=== PATIENT | female | born 1980 | race Caucasian/White ===

== ENCOUNTER 2016-05-12 12:31 | Emergency (ER) | payer OTHER, SELFPAY ==
[2016-05-12 12:55] VITALS: BP 127/83; PULSE 100; RESP 20; TEMP 98.9
--- NOTE | 2016-05-12 13:33 | ED ---
Female Urogenital HPI - General Chief complaint: Urogenital Stated complaint: NAUSEA, POSS UTI? Source: patient Mode of arrival: ambulatory Limitations: no limitations - History of Present Illness Initial comments: Patient is a 36-year-old female present for evaluation for vaginal discharge and nausea with fatigue. Past medical history as below. Patient has had the symptoms over the past week. States that she has a foul odor emanating from her vagina. She has a bloody/white Discharge. She said that she is sexually active and does not wear protection. Her last menstrual period was last month. She doesn't mid to some pelvic cramping. She has a history of Trichomonas which was treated last year. She also has a history of gonorrhea and chlamydia. States that she has subjective fevers and chills. Has diarrhea. Nausea. No vomiting. Denies shortness of breath, chest pain, cough, abdominal pain, pain/burning with urination. Last Menstrual Period: 05/12/16 - Related Data Home Medications Medication Instructions Recorded Confirmed Sertraline [Zoloft] 200 mg PO DAILY 02/21/14 05/12/16 Gabapentin 600 mg PO TID 05/12/16 05/12/16 Ibuprofen [Motrin] 400 mg PO Q6H PRN 05/12/16 05/12/16 Allergies Allergy/AdvReac Type Severity Reaction Status Date / Time No Known Allergies Allergy Verified 05/12/16 13:09 Review of Systems ROS Statement: Those systems with pertinent positive or pertinent negative responses have been documented in the HPI. ROS Other: All systems not noted in ROS Statement are negative. Past Medical History Additional Past Medical History / Comment(s): ENDOMETRIOSIS History of Any Multi-Drug Resistant Organisms: None Reported Past Surgical History: Adenoidectomy, Section, Tonsillectomy Additional Past Surgical History / Comment(s): BILATERAL BUNIONECTOMY joint fusion on r foot/toe Past Psychological History: Bipolar Smoking Status: Current every day smoker Past Alcohol Use History: None Reported Past Drug Use History: None Reported General Exam Limitations: no limitations General appearance: alert, in no apparent distress, other (Nontoxic appearing) Head exam: Present: atraumatic, normocephalic, normal inspection Eye exam: Present: normal appearance, PERRL, EOMI. Absent: scleral icterus, conjunctival injection, periorbital swelling ENT exam: Present: normal exam, mucous membranes moist Neck exam: Present: normal inspection. Absent: tenderness, meningismus, lymphadenopathy Respiratory exam: Present: normal lung sounds bilaterally. Absent: respiratory distress, wheezes, rales, rhonchi, stridor Cardiovascular Exam: Present: regular rate, normal rhythm, normal heart sounds. Absent: systolic murmur, diastolic murmur, rubs, gallop, clicks GI/Abdominal exam: Present: soft, normal bowel sounds, other (Suprapubic tenderness. Mild in nature. Past medical and nontender. No peritoneal signs.) . Absent: distended, tenderness, guarding, rebound, rigid External exam: Present: normal external exam Speculum exam: Present: foreign body, other (There is a retained tampon in the vaginal vault. Removed. No obvious vaginal discharge. Some mild erythema to the cervix. Questional cervical motion tenderness. No other lesions noted.). Absent: vaginal discharge Extremities exam: Present: normal inspection, full ROM, normal capillary refill. Absent: tenderness, pedal edema, joint swelling, calf tenderness Back exam: Present: normal inspection Neurological exam: Present: alert, oriented X3, CN II-XII intact Psychiatric exam: Present: normal affect, normal mood Skin exam: Present: warm, dry, intact, normal color. Absent: rash Course Vital Signs 05/12/16 12:53 Temperature 98.9 F Pulse Rate 100 Respiratory 20 Rate Blood Pressure 127/83 O2 Sat by Pulse 97 Oximetry Medical Decision Making - Medical Decision Making Patient is a 36-year-old female present for evaluation for 1 week history of vaginal discharge and suprapubic pain. Physical exam revealed a retained tampon. Removed. There is some erythema and cervical motion tenderness. Will order basic labs with STI labs, test, ultrasound. 1500: Observe findings as below. Unremarkable. Not . Urinalysis negative. Trichomonas negative. Reviewed ultrasound findings. There is a small ovarian cyst on the left. No other concerning signs for a sending infection. Discussed with the patient. Discussed results that she has an ovarian cyst which is most likely causing her pelvic pain at this time. Since she has no clear signs of vaginal discharge nor does she have signs of STI, will elect to hold antibiotics for now. Feels comfortable going home. Discussed Motrin for ovarian cyst. We'll also provide follow-up with the OB/ CORPORATE ANALYST. Also encouraged her to follow up with her primary care physician. Discussed signs and symptoms on when to return to the emergency department for further evaluation. She is comfortable with discharge home and will follow-up. - Lab Data Result diagrams: 05/12/16 13:35 05/12/16 13:35 Lab Results 05/12/16 05/12/16 05/12/16 Range/Units 13:35 13:35 13:35 WBC 7.1 (3.8-10.6) k/uL RBC 4.99 (3.80-5.40) m/uL Hgb 13.6 (11.4-16.0) gm/dL Hct 42.4 (34.0-46.0) % MCV 85.1 (80.0-100.0) fL MCH 27.3 (25.0-35.0) pg MCHC 32.0 (31.0-37.0) g/dL RDW 13.0 (11.5-15.5) % Plt Count 382 (150-450) k/uL Neutrophils % HEAD OF DATA Neutrophils % (Manual) 49.0 % Lymphocytes % HEAD OF DATA Lymphocytes % (Manual) 38.5 % Monocytes % HEAD OF DATA Monocytes % (Manual) 6.5 % Eosinophils % HEAD OF DATA Eosinophils % (Manual) 5.0 % Basophils % HEAD OF DATA Metamyelocytes % 1.0 % Neutrophils # HEAD OF DATA Neutrophils # (Manual) 3.5 (1.3-7.7) k/uL Lymphocytes # HEAD OF DATA Lymphocytes # (Manual) 2.7 (1.0-4.8) k/uL Monocytes # HEAD OF DATA Monocytes # (Manual) 0.5 (0-1.0) k/uL Eosinophils # HEAD OF DATA Eosinophils # (Manual) 0.4 (0-0.7) k/uL Basophils # HEAD OF DATA Nucleated RBCs 0 (0-0) /100 WBC Polychromasia Present Sodium 142 (137-145) mmol/L Potassium 4.1 (3.5-5.1) mmol/L Chloride 106 (98-107) mmol/L Carbon Dioxide 25 (22-30) mmol/L Anion Gap 11 mmol/L BUN 18 H (7-17) mg/dL Creatinine 0.60 (0.52-1.04) mg/dL Est GFR (MDRD) Af Amer >60 (>60 ml/min/1.73 sqM) Est GFR (MDRD) Non-Af >60 (>60 ml/min/1.73 sqM) Glucose 101 H (74-99) mg/dL Calcium 9.5 (8.4-10.2) mg/dL Total Bilirubin 0.4 (0.2-1.3) mg/dL AST 15 (14-36) U/L ALT 63 H (9-52) U/L Alkaline Phosphatase 63 (38-126) U/L Total Protein 8.0 (6.3-8.2) g/dL Albumin 4.1 (3.5-5.0) g/dL HCG, Quant <2.4 mIU/mL Urine Color Urine Appearance (Clear) Urine pH (5.0-8.0) Ur Specific [place] (1.001-1.035) Urine Protein (Negative) Urine Glucose (UA) (Negative) Urine Ketones (Negative) Urine Blood (Negative) Urine Nitrite (Negative) Urine Bilirubin (Negative) Urine Urobilinogen (<2.0) mg/dL Ur Leukocyte Esterase (Negative) Urine RBC (0-5) /hpf Urine WBC (0-5) /hpf Ur Squamous Epith Cells (0-4) /hpf Urine Bacteria (None) /hpf Urine Mucus (None) /hpf Trichomonas Ag (Rapid) Negative (Negative) 05/12/16 Range/Units 14:08 WBC (3.8-10.6) k/uL RBC (3.80-5.40) m/uL Hgb (11.4-16.0) gm/dL Hct (34.0-46.0) % MCV (80.0-100.0) fL MCH (25.0-35.0) pg MCHC (31.0-37.0) g/dL RDW (11.5-15.5) % Plt Count (150-450) k/uL Neutrophils % Neutrophils % (Manual) % Lymphocytes % Lymphocytes % (Manual) % Monocytes % Monocytes % (Manual) % Eosinophils % Eosinophils % (Manual) % Basophils % Metamyelocytes % % Neutrophils # Neutrophils # (Manual) (1.3-7.7) k/uL Lymphocytes # Lymphocytes # (Manual) (1.0-4.8) k/uL Monocytes # Monocytes # (Manual) (0-1.0) k/uL Eosinophils # Eosinophils # (Manual) (0-0.7) k/uL Basophils # Nucleated RBCs (0-0) /100 WBC Polychromasia Sodium (137-145) mmol/L Potassium (3.5-5.1) mmol/L Chloride (98-107) mmol/L Carbon Dioxide (22-30) mmol/L Anion Gap mmol/L BUN (7-17) mg/dL Creatinine (0.52-1.04) mg/dL Est GFR (MDRD) Af Amer (>60 ml/min/1.73 sqM) Est GFR (MDRD) Non-Af (>60 ml/min/1.73 sqM) Glucose (74-99) mg/dL Calcium (8.4-10.2) mg/dL Total Bilirubin (0.2-1.3) mg/dL AST (14-36) U/L ALT (9-52) U/L Alkaline Phosphatase (38-126) U/L Total Protein (6.3-8.2) g/dL Albumin (3.5-5.0) g/dL HCG, Quant mIU/mL Urine Color Yellow Urine Appearance Clear (Clear) Urine pH 6.0 (5.0-8.0) Ur Specific [place] 1.022 (1.001-1.035) Urine Protein Trace H (Negative) Urine Glucose (UA) Negative (Negative) Urine Ketones Negative (Negative) Urine Blood Small H (Negative) Urine Nitrite Negative (Negative) Urine Bilirubin Negative (Negative) Urine Urobilinogen <2.0 (<2.0) mg/dL Ur Leukocyte Esterase Negative (Negative) Urine RBC 1 (0-5) /hpf Urine WBC <1 (0-5) /hpf Ur Squamous Epith Cells 3 (0-4) /hpf Urine Bacteria Rare H (None) /hpf Urine Mucus Few H (None) /hpf Trichomonas Ag (Rapid) (Negative) Disposition Clinical Impression: Retained foreign body, Ovarian cyst Disposition: HOME SELF-CARE Condition: Good Instructions: Vaginal Discharge (ED), Ovarian Cyst (ED) Referrals: Samuel Hirsch MD [Primary Care Provider] - 1-2 days Magi Swanson MD [STAFF PHYSICIAN] - 1-2 days
[2016-05-12 13:58] LABS: Aty Lym Flag Slight; CH 27.5; CHCM 32.4; HCT 42.4 % (34.0-46.0); HDW 2.97; HGB 13.6 gm/dL (11.4-16.0); MCH 27.3 pg (25.0-35.0); MCV 85.1 fL (80.0-100.0); Mean Platelet Volume 6.3; RBC 4.99 m/uL (3.80-5.40); WBC 7.1 k/uL (3.8-10.6); WBC (Perox) 7.17
[2016-05-12 14:03] LABS: ALT 63 U/L (9-52); AST 15 U/L (14-36); Alkaline Phosphatase 63 U/L (38-126); Anion Gap 11 mmol/L; Blood Urea Nitrogen 18 mg/dL (7-17); Calcium 9.5 mg/dL (8.4-10.2); Carbon Dioxide 25 mmol/L (22-30); Chloride 106 mmol/L (98-107); Glucose 101 mg/dL (74-99); Non-African American GFR(MDRD) >60 (>60 ml/min/1.73 sqM); Potassium 4.1 mmol/L (3.5-5.1); Sodium 142 mmol/L (137-145); Total Bilirubin 0.4 mg/dL (0.2-1.3)
[2016-05-12 14:08] LABS: Add Differential Manual Differential
[2016-05-12 14:12] LABS: Nucleated Red Blood Cells 0 /100 WBC (0-0); Polychromasia Present; Total Cells Counted 200
[2016-05-12 14:19] LABS: HCG,Quantitative Serum <2.4 mIU/mL
[2016-05-12 14:22] LABS: Appearance,Urine Clear (Clear); Bacteria,Urine Rare /hpf; Bilirubin,Urine Negative (Negative); Glucose,Urine (UA) Negative (Negative); Ketones,Urine Negative (Negative); Leukocyte Esterase,Urine Negative (Negative); Mucus,Urine Few /hpf; Nitrite,Urine Negative (Negative); Particle Count 6011; Protein,Urine Trace (Negative); RBC,Urine 1 /hpf (0-5); Specific Gravity,Urine 1.022 (1.001-1.035); Squamous Epithelial Cell,Urine 3 /hpf (0-4); UA Billing (MACRO vs. MICRO) MICRO; Urobilinogen,Urine <2.0 mg/dL (<2.0); WBC,Urine <1 /hpf (0-5)
--- NOTE | 2016-05-12 14:55 | US ---
EXAMINATION TYPE: US transvaginal DATE OF EXAM: 05/12/2016 2:35 PM COMPARISON: Prior pelvic ultrasound November 01, 2013 CLINICAL HISTORY: Pain. irregular cycles, patient states that the ER Dr removed an impacted tampon. TECHNIQUE: Transvaginal (TV) Date of LMP: end of last month per patient EXAM MEASUREMENTS: Uterus: 8.7 x 4.5 x 5.9 cm Endometrial Stripe: 0.6 cm with fluid within cm Right Ovary: 2.3 x 1.7 x 2.5 cm Left Ovary: 2.8 x 2.1 x 3.3 cm TECHNOLOGIST IMPRESSION: prior exams on PACS 1. Uterus: Anteverted wnl 2. Endometrium: fluid seen within 3. Right Ovary: wnl 4. Left Ovary: wnl Spectral, color and waveform doppler imaging shows good arterial and venous flow within the ovaries ; 5. Bilateral Adnexa: adjacent to left ovary there is a thick walled fluid collection measuring 2.3 x 1.5 x 1.9 cm 6. Posterior cul-de-sac: no free fluid Some free fluid is seen in the endometrial canal. Endometrium is not suspiciously thickened. No free fluid is seen in pelvic cul-de-sac. Both ovaries are identified. Within left ovary there is an irregular 2.3 x 1.5 x 1.9 cm cyst with int ernal echoes could reflect involuting hemorrhagic or proteinaceous cyst. IMPRESSION: There is 2.3 cm nonsimple cyst in the left ovary suspect involuting hemorrhagic or protei naceous cyst. Small amount of free fluid is seen in the endometrial canal of uterine fundus, nonspec ific finding.
== END 2016-05-12 15:22 | disposition home or self-care (01) ==
LOC: EC 12:31
DX: T19.2XXA Foreign body in vulva and vagina, initial encounter (principal); N83.202 Unspecified ovarian cyst, left side; F31.9 Bipolar disorder, unspecified; F17.200 Nicotine dependence, unspecified, uncomplicated; Z79.899 Other long term (current) drug therapy
CPT/HCPCS: 36415; 76830; 80053; 81001; 84702; 85025; 87491; 87591; 87808; 93975; 99284

== ENCOUNTER 2016-06-14 08:15 | Emergency (ER) | payer OTHER, SELFPAY ==
[2016-06-14] MEDS ORDERED: DIPH,PERTUS(ACELL)TETVAC-LF 0.5 ML VIAL IM ONE (08:27)
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
[2016-06-14 10:48] VITALS: BP 107/70; PULSE 84; RESP 16; TEMP 98.2
== END 2016-06-14 11:09 | disposition home or self-care (01) ==
LOC: EC 08:15
DX: F32.9 Major depressive disorder, single episode, unspecified (principal); S00.81XA Abrasion of other part of head, initial encounter; T22.012A Burn of unspecified degree of left forearm, initial encounter; F41.9 Anxiety disorder, unspecified; F17.200 Nicotine dependence, unspecified, uncomplicated; Z79.899 Other long term (current) drug therapy; Z23 Encounter for immunization; W51.XXXA Accidental striking against or bumped into by another person, initial encounter
CPT/HCPCS: 70450; 82075; 90471; 90715; 99285

== ENCOUNTER 2017-02-24 21:16 | Emergency (ER) | payer OTHER ==
[2017-02-24] MEDS ORDERED: KETOROLAC 30 MG/ML 1 ML VIAL IVP STA (22:01)
[2017-02-24] MEDS ORDERED: SODIUM CHLORIDE 0.9% 1,000 ML IV STA (22:01)
[2017-02-24] MEDS ORDERED: ONDANSETRON 4 MG/2 ML VIAL IVP STA (22:01)
[2017-02-24] MEDS ORDERED: ACETAMINOPHEN TAB 325 MG TAB PO STA (22:01)
[2017-02-24 22:32] LABS: Basophils # (A) 0.1 k/uL (0-0.2); Basophils % (A) 1 %; Eosinophils # (A) 0.2 k/uL (0-0.7); Eosinophils % (A) 2 %; HCT 37.4 % (34.0-46.0); HGB 12.1 gm/dL (11.4-16.0); Lymphocytes # (A) 1.6 k/uL (1.0-4.8); Lymphocytes % (A) 15 %; MCH 27.3 pg (25.0-35.0); MCHC 32.2 g/dL (31.0-37.0); MCV 84.6 fL (80.0-100.0); Mean Platelet Volume 6.8; Monocytes # (A) 0.5 k/uL (0-1.0); Monocytes % (A) 5 %; Neutrophils # (A) 8.1 k/uL (1.3-7.7); Neutrophils % (A) 75 %; Platelet Count 270 k/uL (150-450); RBC 4.42 m/uL (3.80-5.40); RDW 13.4 % (11.5-15.5); WBC 10.8 k/uL (3.8-10.6)
[2017-02-24 22:41] LABS: ALT 25 U/L (9-52); AST 11 U/L (14-36); Albumin 3.5 g/dL (3.5-5.0); Alkaline Phosphatase 46 U/L (38-126); Amylase <30 U/L (30-110); Anion Gap 10 mmol/L; Blood Urea Nitrogen 11 mg/dL (7-17); Calcium 8.4 mg/dL (8.4-10.2); Carbon Dioxide 29 mmol/L (22-30); Chloride 103 mmol/L (98-107); Glucose 95 mg/dL (74-99); Lipase 37 U/L (23-300); Potassium 3.3 mmol/L (3.5-5.1); Sodium 142 mmol/L (137-145); Total Bilirubin 0.2 mg/dL (0.2-1.3); Total Protein 6.9 g/dL (6.3-8.2)
[2017-02-24 22:44] LABS: Amorphous Sediment,Urine Rare /hpf; Appearance,Urine Cloudy (Clear); Bacteria,Urine Rare /hpf; Bilirubin,Urine Negative (Negative); Blood,Urine Small (Negative); Color,Urine Yellow; Glucose,Urine (UA) Negative (Negative); Ketones,Urine Negative (Negative); Leukocyte Esterase,Urine Moderate (Negative); Mucus,Urine Many /hpf; Nitrite,Urine Negative (Negative); Protein,Urine 1+ (Negative); RBC,Urine 1 /hpf (0-5); Specific Gravity,Urine 1.026 (1.001-1.035); Squamous Epithelial Cell,Urine 6 /hpf (0-4); WBC,Urine 11 /hpf (0-5)
--- NOTE | 2017-02-24 22:57 | XR ---
EXAMINATION TYPE: XR chest 2V DATE OF EXAM: 02/24/2017 COMPARISON: 02/05/2015 HISTORY: Chest pain TECHNIQUE: Frontal and lateral views of the chest are obtained. FINDINGS: Heart and mediastinum are normal. There is patchy infiltrate in both lower lobes. There is patchy atelectasis at the right lung base and in the right middle lobe. There is no heart failure. M ediastinum is normal. IMPRESSION: There are new bilateral lower lobe pulmonary infiltrates and atelectasis compared to old exam. Normal heart. There is posterior left lower lobe consolidation.
--- NOTE | 2017-02-24 22:59 | XR ---
EXAMINATION TYPE: XR KUB DATE OF EXAM: 02/24/2017 COMPARISON: 01/22/2013 HISTORY: Abdominal pain TECHNIQUE: 2 views FINDINGS: There is no sign of intestinal obstruction or pneumoperitoneum. Fecal pattern is normal. Th ere are no pathologic calcifications over the kidneys. There are infiltrates and atelectasis in both lower lobes. IMPRESSION: Nonacute abdomen. Bilateral patchy lower lobe pneumonia is new compared to old exam.
[2017-02-24 23:46] VITALS: BP 110/77; PULSE 93; RESP 18
[2017-02-24] MEDS ORDERED: HYDROcodone/APAP 5-325MG 1 EACH TAB PO STA (23:52)
[2017-02-24] MEDS ORDERED: AZITHROMYCIN 500 MG TAB PO STA (23:52)
--- NOTE | 2017-02-24 23:55 | ED ---
General Adult HPI - General Chief complaint: Abdominal Pain Stated complaint: ABD PAIN Time Seen by Provider: 02/24/17 21:21 Source: patient, EMS Mode of arrival: EMS Limitations: no limitations - History of Present Illness Initial comments: 37-year-old female patient presents to the emergency department today for evaluation of general body aches, malaise, cough, and sore throat. Reports that she has been feeling unwell for the last few days. She states that she has felt feverish and has had chills. She states that she recently completed her. However is unsure if she took her final tampon out. She is complaining of lower abdominal cramping. She reports cough but denies any sputum production. States she is having right-sided chest pain when she takes a deep breath. She denies any ear pain. States she has clear nasal drainage. Patient denies any recent rash, shortness breath, abdominal pain, nausea, vomiting, diarrhea, constipation, back pain, numbness, tingling, hematuria, dysuria, urinary urgency, urinary frequency, headache, visual changes, or any other complaints. Denies any chance of . States she hasn't been sexually active in 2 months. - Related Data Home Medications Medication Instructions Recorded Confirmed Ibuprofen [Motrin] 600 mg PO TID PRN 02/24/17 02/24/17 Previous Rx's Medication Instructions Recorded Azithromycin [Zithromax] 500 mg PO DAILY #5 tab 02/24/17 metroNIDAZOLE [Flagyl] 2,000 mg PO ONCE #4 tab 02/25/17 Allergies Allergy/AdvReac Type Severity Reaction Status Date / Time No Known Allergies Allergy Verified 02/24/17 21:29 Review of Systems ROS Statement: Those systems with pertinent positive or pertinent negative responses have been documented in the HPI. ROS Other: All systems not noted in ROS Statement are negative. Past Medical History Additional Past Medical History / Comment(s): ENDOMETRIOSIS History of Any Multi-Drug Resistant Organisms: None Reported Past Surgical History: Adenoidectomy, Section, Tonsillectomy Additional Past Surgical History / Comment(s): BILATERAL BUNIONECTOMY joint fusion on r foot/toe Past Psychological History: Bipolar Smoking Status: Current every day smoker Past Alcohol Use History: None Reported Past Drug Use History: None Reported General Exam Limitations: no limitations General appearance: alert, in no apparent distress, other (This is a well- developed, well-nourished adult female patient in no acute distress. Vital signs upon presentation were temperature 99.1F, pulse 103, respirations 18, blood pressure 120/73, pulse ox 99% on room air.) Eye exam: Present: normal appearance, PERRL, EOMI. Absent: scleral icterus, conjunctival injection, periorbital swelling ENT exam: Present: normal exam, mucous membranes moist, TM's normal bilaterally , other (No tonsillar hypertrophy or exudate noted). Absent: normal oropharynx (Mild oropharyngeal erythema) Neck exam: Present: normal inspection. Absent: tenderness, meningismus, lymphadenopathy Respiratory exam: Present: normal lung sounds bilaterally. Absent: respiratory distress, wheezes, rales, rhonchi, stridor Cardiovascular Exam: Present: regular rate, normal rhythm, normal heart sounds. Absent: systolic murmur, diastolic murmur, rubs, gallop, clicks GI/Abdominal exam: Present: soft, normal bowel sounds. Absent: distended, tenderness, guarding, rebound, rigid Neurological exam: Present: alert, oriented X3, CN II-XII intact Psychiatric exam: Present: normal affect, normal mood Skin exam: Present: warm, dry, intact, normal color. Absent: rash Course Vital Signs 02/24/17 02/24/17 02/24/17 21:28 22:22 23:25 Temperature 99.1 F Pulse Rate 103 H 95 94 Respiratory 18 18 20 Rate Blood Pressure 120/73 109/55 105/58 O2 Sat by Pulse 99 99 97 Oximetry 02/24/17 02/25/17 23:44 00:01 Temperature 97.7 F Pulse Rate 93 Respiratory 18 Rate Blood Pressure 110/77 O2 Sat by Pulse 99 Oximetry Medical Decision Making - Medical Decision Making 37-year-old female patient presented to the emergency department today for evaluation of general bodyaches, general malaise, cough, and upper respiratory symptoms. Physical examination did reveal mild pharyngeal erythema. Patient was also concerned that she may have not to remove moved her tampon from her period. Leg examination revealed that there was no foreign body in the vagina. Patient did have some bilateral adnexal tenderness. Labs reviewed and did reveal a white blood cell count of 10.8, Urinalysis did show a cloudy appearance with 1+ protein, small amount of blood, moderate leukocyte esterase, 11 white blood cells, rare white blood cell clumps, 6 squamous epithelial cells , rare amorphous sediment, rare urine bacteria, and many urine mucus. Urine hCG was negative. Chest x-ray was obtained and did show bilateral patchy infiltrates in the lower lobes. Patient will be treated with a Zithromax and. We will give her one dose here and give her prescription for 500 mg once a day for 5 days. Patient was informed of results. She is instructed to follow-up with her primary care physician for recheck in 1-2 days. She is instructed to return here immediately for any new, worsening, or concerning symptoms. She verbalizes understanding and agrees with this plan. Note: To discharge her vaginal swabs did come back positive for Trichomonas. Patient will be called and given a prescription for 2000 mg of Flagyl for a one- time dose. - Lab Data Result diagrams: 02/24/17 22:20 02/24/17 22:20 Lab Results 02/24/17 02/24/17 02/24/17 Range/Units 22:20 22:20 22:20 WBC 10.8 H (3.8-10.6) k/uL RBC 4.42 (3.80-5.40) m/uL Hgb 12.1 (11.4-16.0) gm/dL Hct 37.4 (34.0-46.0) % MCV 84.6 (80.0-100.0) fL MCH 27.3 (25.0-35.0) pg MCHC 32.2 (31.0-37.0) g/dL RDW 13.4 (11.5-15.5) % Plt Count 270 (150-450) k/uL Neutrophils % 75 % Lymphocytes % 15 % Monocytes % 5 % Eosinophils % 2 % Basophils % 1 % Neutrophils # 8.1 H (1.3-7.7) k/uL Lymphocytes # 1.6 (1.0-4.8) k/uL Monocytes # 0.5 (0-1.0) k/uL Eosinophils # 0.2 (0-0.7) k/uL Basophils # 0.1 (0-0.2) k/uL Sodium 142 (137-145) mmol/L Potassium 3.3 L (3.5-5.1) mmol/L Chloride 103 (98-107) mmol/L Carbon Dioxide 29 (22-30) mmol/L Anion Gap 10 mmol/L BUN 11 (7-17) mg/dL Creatinine 0.60 (0.52-1.04) mg/dL Est GFR (MDRD) Af Amer >60 (>60 ml/min/1.73 sqM) Est GFR (MDRD) Non-Af >60 (>60 ml/min/1.73 sqM) Glucose 95 (74-99) mg/dL Calcium 8.4 (8.4-10.2) mg/dL Total Bilirubin 0.2 (0.2-1.3) mg/dL AST 11 L (14-36) U/L ALT 25 (9-52) U/L Alkaline Phosphatase 46 (38-126) U/L Total Protein 6.9 (6.3-8.2) g/dL Albumin 3.5 (3.5-5.0) g/dL Amylase <30 L (30-110) U/L Lipase 37 (23-300) U/L Urine Color Urine Appearance (Clear) Urine pH (5.0-8.0) Ur Specific Roy (1.001-1.035) Urine Protein (Negative) Urine Glucose (UA) (Negative) Urine Ketones (Negative) Urine Blood (Negative) Urine Nitrite (Negative) Urine Bilirubin (Negative) Urine Urobilinogen (<2.0) mg/dL Ur Leukocyte Esterase (Negative) Urine RBC (0-5) /hpf Urine WBC (0-5) /hpf Urine WBC Clumps (None) /hpf Ur Squamous Epith Cells (0-4) /hpf Amorphous Sediment (None) /hpf Urine Bacteria (None) /hpf Urine Mucus (None) /hpf Urine HCG, Qual Not Detected (Not Detectd) Influenza Type A RNA (Not Detectd) Influenza Type B (PCR) (Not Detectd) Trichomonas Ag (Rapid) (Negative) 02/24/17 02/24/17 02/24/17 Range/Units 22:20 22:20 23:46 WBC (3.8-10.6) k/uL RBC (3.80-5.40) m/uL Hgb (11.4-16.0) gm/dL Hct (34.0-46.0) % MCV (80.0-100.0) fL MCH (25.0-35.0) pg MCHC (31.0-37.0) g/dL RDW (11.5-15.5) % Plt Count (150-450) k/uL Neutrophils % % Lymphocytes % % Monocytes % % Eosinophils % % Basophils % % Neutrophils # (1.3-7.7) k/uL Lymphocytes # (1.0-4.8) k/uL Monocytes # (0-1.0) k/uL Eosinophils # (0-0.7) k/uL Basophils # (0-0.2) k/uL Sodium (137-145) mmol/L Potassium (3.5-5.1) mmol/L Chloride (98-107) mmol/L Carbon Dioxide (22-30) mmol/L Anion Gap mmol/L BUN (7-17) mg/dL Creatinine (0.52-1.04) mg/dL Est GFR (MDRD) Af Amer (>60 ml/min/1.73 sqM) Est GFR (MDRD) Non-Af (>60 ml/min/1.73 sqM) Glucose (74-99) mg/dL Calcium (8.4-10.2) mg/dL Total Bilirubin (0.2-1.3) mg/dL AST (14-36) U/L ALT (9-52) U/L Alkaline Phosphatase (38-126) U/L Total Protein (6.3-8.2) g/dL Albumin (3.5-5.0) g/dL Amylase (30-110) U/L Lipase (23-300) U/L Urine Color Yellow Urine Appearance Cloudy H (Clear) Urine pH 6.0 (5.0-8.0) Ur Specific Roy 1.026 (1.001-1.035) Urine Protein 1+ H (Negative) Urine Glucose (UA) Negative (Negative) Urine Ketones Negative (Negative) Urine Blood Small H (Negative) Urine Nitrite Negative (Negative) Urine Bilirubin Negative (Negative) Urine Urobilinogen 2.0 (<2.0) mg/dL Ur Leukocyte Esterase Moderate H (Negative) Urine RBC 1 (0-5) /hpf Urine WBC 11 H (0-5) /hpf Urine WBC Clumps Rare H (None) /hpf Ur Squamous Epith Cells 6 H (0-4) /hpf Amorphous Sediment Rare H (None) /hpf Urine Bacteria Rare H (None) /hpf Urine Mucus Many H (None) /hpf Urine HCG, Qual (Not Detectd) Influenza Type A RNA Not Detected (Not Detectd) Influenza Type B (PCR) Not Detected (Not Detectd) Trichomonas Ag (Rapid) Positive H (Negative) - Radiology Data Radiology results: report reviewed, image reviewed KUB x-ray of the abdomen shows no sign of intestinal obstruction or pneumoperitoneum. Fecal pattern is normal. There are no pathologic calcifications over the kidneys. There are infiltrates and atelectasis in both lower lobes. Impression by Dr. Valentine shows nonacute abdomen. Bilateral patchy lower lobe pneumonia is new compared to old exam. Two-view x-ray of the chest shows a heart and mediastinum are normal. There is patchy infiltrate in both lower lobes. There is patchy atelectasis at the right lung base and in the right middle lobe. There is no heart failure. Mediastinum is normal. Impression by Dr. Valentine shows new bilateral lower lobe pulmonary infiltrates and atelectasis compared to old exam. Normal heart. There is posterior left lower lobe consolidation. Disposition Clinical Impression: Pneumonia of both lower lobes Disposition: HOME SELF-CARE Condition: Good Instructions: Pneumonia (ED) Additional Instructions: Alternate acetaminophen and ibuprofen for pain and fever control. Complete antibiotic prescription in full. Follow-up with your primary care physician for recheck in 1-2 days. Return here immediately for any new, worsening, or concerning symptoms. Prescriptions: Azithromycin [Zithromax] 500 mg PO DAILY #5 tab metroNIDAZOLE [Flagyl] 2,000 mg PO ONCE #4 tab Referrals: Samuel Hirsch MD [Primary Care Provider] - 1-2 days Time of Disposition: 23:54
[2017-02-25 00:02] VITALS: TEMP 97.7
[2017-02-26 13:48] LABS: Chlamydia trachomatis rRNA Not detected (Not detected); Neisseria gonorrhoeae rRNA Not detected (Not detected)
== END 2017-02-25 00:01 | disposition home or self-care (01) ==
LOC: EC 21:16
DX: J18.9 Pneumonia, unspecified organism (principal); R10.30 Lower abdominal pain, unspecified; F17.200 Nicotine dependence, unspecified, uncomplicated
CPT/HCPCS: 99284 ×2; 96374 ×2; 96375 ×2; 96361 ×2; 36415; 80053; 87591; 87491; 82150; 83690; 85025; 81001; 81025; 87808; 87070; 87086; 87502; 71046; 74018; J2405; J1885

== ENCOUNTER 2017-04-01 22:33 | Emergency (ER) | payer OTHER ==
[2017-04-01] MEDS ORDERED: LORazepam 2 MG/ML INJ IV STA (22:49)
--- NOTE | 2017-04-01 22:59 | ED ---
Psych HPI - General Source: patient, EMS Mode of arrival: EMS <Seferino Martínez - Last Filed: 04/01/17 23:49> <Omar Pollard - Last Filed: 04/02/17 10:12> - General Chief Complaint: Psychiatric Symptoms Stated Complaint: Mental Health Time Seen by Provider: 04/01/17 22:38 - History of Present Illness Initial Comments: This is a 37-year-old female who presents emergency department for strange behavior. She was picked up by police department for her behavior. The patient was found to be very hyperverbal and acting funny. She admits to injecting methamphetamines yesterday however not today. She states that today she has not done any drugs. The report is that the [employer] police officer saw her at the store acting funny and picked her up attempt [employer] because she appeared to be high on methamphetamine. She was brought emergency department. Patient denies that she took any of these medications today and admits that the methamphetamine yesterday. She states that she has not done any other medications or drugs. She states that she's also been on Zoloft for manic depressive however has not been taking this. She denies any other acute complaints at this time. (Seferino Martínez) - Related Data Home Medications Medication Instructions Recorded Confirmed Ibuprofen [Motrin] 600 mg PO TID PRN 02/24/17 04/01/17 Gabapentin 600 mg PO DIRECTED 04/01/17 04/01/17 diphenhydrAMINE HCL [Benadryl] 25 mg PO HS PRN 04/01/17 04/01/17 Allergies Allergy/AdvReac Type Severity Reaction Status Date / Time No Known Allergies Allergy Verified 04/01/17 23:06 Review of Systems ROS Other: All systems not noted in ROS Statement are negative. <Seferino Martínez - Last Filed: 04/01/17 23:49> ROS Other: All systems not noted in ROS Statement are negative. <Omar Pollard - Last Filed: 04/02/17 10:12> ROS Statement: Those systems with pertinent positive or pertinent negative responses have been documented in the HPI. Past Medical History Additional Past Medical History / Comment(s): ENDOMETRIOSIS History of Any Multi-Drug Resistant Organisms: None Reported Past Surgical History: Adenoidectomy, Section, Tonsillectomy Additional Past Surgical History / Comment(s): BILATERAL BUNIONECTOMY joint fusion on r foot/toe Past Psychological History: Bipolar Smoking Status: Current every day smoker Past Alcohol Use History: None Reported Past Drug Use History: Heroin, Marijuana, Methamphetamine <Seferino Martínez - Last Filed: 04/01/17 23:49> General Exam Limitations: no limitations <TanyaSeferino - Last Filed: 04/01/17 23:49> <Omar Pollard - Last Filed: 04/02/17 10:12> - General Exam Comments Initial Comments: Constitutional: Awake alert patient is very agitated and hyperverbal Head: Normocephalic atraumatic Eyes: no conjunctival injection No scleral icterus EOMI pupils are 4 mm and reactive bilaterally Neck: No JVD Supple Heart: Regular rate rhythm normal S1-S2 no murmurs Lungs: Clear to auscultation bilaterally No wheezing No rales Abdomen: Soft nondistended nontender Extremities: Non edematous DP pulses intact Radial pulses intact Neuro: A&Ox3 No focal neurologic deficits Psych: Patient is not suicidal or homicidal. She is very hyperverbal and hyperactive. She has grandiose ideation. (Seferino Martínez) Course <MarksSeferino - Last Filed: 04/01/17 23:49> <Omar Pollard - Last Filed: 04/02/17 10:12> Vital Signs 04/01/17 04/02/17 04/02/17 22:43 00:25 01:00 Temperature 97.2 F L Pulse Rate 84 88 Respiratory 18 18 18 Rate Blood Pressure 141/61 O2 Sat by Pulse 97 98 Oximetry 04/02/17 04/02/17 04/02/17 02:00 03:00 04:00 Temperature Pulse Rate 90 78 87 Respiratory 16 16 16 Rate Blood Pressure O2 Sat by Pulse 99 99 98 Oximetry 04/02/17 04/02/17 04/02/17 05:00 06:00 07:55 Temperature Pulse Rate 86 86 71 Respiratory 16 16 16 Rate Blood Pressure 114/73 O2 Sat by Pulse 98 99 98 Oximetry - Reevaluation(s) Reevaluation #1: 04/01/17 22:57 EKG showing normal sinus rhythm with a rate of 77. No abnormal masses images or T-wave inversions. QTC is 477. Other intervals normal. No ectopy. (Seferino Martínez) Reevaluation #2: 04/01/17 23:49 Patient's labwork unremarkable. She urine is positive for amphetamines and methamphetamines. Patient's physical exam is not consistent with an acute methamphetamine ingestion. She is not tachycardic and has no diaphoresis or dilated pupils. Consider that this may be methamphetamine induced psychosis. Patient petitioned by police needs evaluation by EPS. Currently medically clear for evaluation. (Seferino Martínez) Medical Decision Making - Lab Data Result diagrams: 04/01/17 23:02 04/01/17 23:02 <Seferino Martínez - Last Filed: 04/01/17 23:49> - Lab Data Result diagrams: 04/01/17 23:02 04/01/17 23:02 <Omar Pollard - Last Filed: 04/02/17 10:12> - Medical Decision Making EPS evaluated the patient and determined that the patient was safe to go home. ( Omar Pollard) - Lab Data Lab Results 04/01/17 04/01/17 04/01/17 Range/Units 23:00 23:00 23:02 WBC (3.8-10.6) k/uL RBC (3.80-5.40) m/uL Hgb (11.4-16.0) gm/dL Hct (34.0-46.0) % MCV (80.0-100.0) fL MCH (25.0-35.0) pg MCHC (31.0-37.0) g/dL RDW (11.5-15.5) % Plt Count (150-450) k/uL Neutrophils % Neutrophils % (Manual) % Band Neutrophils % % Lymphocytes % Lymphocytes % (Manual) % Monocytes % Monocytes % (Manual) % Eosinophils % Eosinophils % (Manual) % Basophils % Neutrophils # Neutrophils # (Manual) (1.3-7.7) k/uL Lymphocytes # Lymphocytes # (Manual) (1.0-4.8) k/uL Monocytes # Monocytes # (Manual) (0-1.0) k/uL Eosinophils # Eosinophils # (Manual) (0-0.7) k/uL Basophils # Nucleated RBCs (0-0) /100 WBC Large Platelets Poikilocytosis (manual Anisocytosis (manual) Sodium 140 (137-145) mmol/L Potassium 3.6 (3.5-5.1) mmol/L Chloride 104 (98-107) mmol/L Carbon Dioxide 24 (22-30) mmol/L Anion Gap 12 mmol/L BUN 19 H (7-17) mg/dL Creatinine 0.90 (0.52-1.04) mg/dL Est GFR (MDRD) Af Amer >60 (>60 ml/min/1.73 sqM) Est GFR (MDRD) Non-Af >60 (>60 ml/min/1.73 sqM) Glucose 121 H (74-99) mg/dL Calcium 9.0 (8.4-10.2) mg/dL Total Bilirubin 0.4 (0.2-1.3) mg/dL AST 19 (14-36) U/L ALT 38 (9-52) U/L Alkaline Phosphatase 58 (38-126) U/L Total Protein 7.2 (6.3-8.2) g/dL Albumin 3.9 (3.5-5.0) g/dL Urine HCG, Qual Not Detected (Not Detectd) Salicylates <1.0 mg/dL Urine Opiates Screen Not Detected (NotDetected) Ur Oxycodone Screen Not Detected (NotDetected) Urine Methadone Screen Not Detected (NotDetected) Ur Propoxyphene Screen Not Detected (NotDetected) Acetaminophen <10.0 ug/mL Ur Barbiturates Screen Not Detected (NotDetected) U Tricyclic Antidepress Not Detected (NotDetected) Ur Phencyclidine Scrn Not Detected (NotDetected) Ur Amphetamines Screen Detected H (NotDetected) U Methamphetamines Scrn Detected H (NotDetected) U Benzodiazepines Scrn Not Detected (NotDetected) Urine Cocaine Screen Not Detected (NotDetected) U Marijuana (THC) Screen Not Detected (NotDetected) 04/01/17 Range/Units 23:02 WBC 9.4 (3.8-10.6) k/uL RBC 4.28 (3.80-5.40) m/uL Hgb 11.4 (11.4-16.0) gm/dL Hct 34.8 (34.0-46.0) % MCV 81.3 (80.0-100.0) fL MCH 26.6 (25.0-35.0) pg MCHC 32.8 (31.0-37.0) g/dL RDW 12.9 (11.5-15.5) % Plt Count 354 (150-450) k/uL Neutrophils % HEAD HOST/HOSTESS Neutrophils % (Manual) 54 % Band Neutrophils % 4 % Lymphocytes % HEAD HOST/HOSTESS Lymphocytes % (Manual) 36 % Monocytes % HEAD HOST/HOSTESS Monocytes % (Manual) 1 % Eosinophils % HEAD HOST/HOSTESS Eosinophils % (Manual) 5 % Basophils % HEAD HOST/HOSTESS Neutrophils # HEAD HOST/HOSTESS Neutrophils # (Manual) 5.40 (1.3-7.7) k/uL Lymphocytes # HEAD HOST/HOSTESS Lymphocytes # (Manual) 3.38 (1.0-4.8) k/uL Monocytes # HEAD HOST/HOSTESS Monocytes # (Manual) 0.09 (0-1.0) k/uL Eosinophils # HEAD HOST/HOSTESS Eosinophils # (Manual) 0.47 (0-0.7) k/uL Basophils # HEAD HOST/HOSTESS Nucleated RBCs 0 (0-0) /100 WBC Large Platelets Present Poikilocytosis (manual Present Anisocytosis (manual) Present Sodium (137-145) mmol/L Potassium (3.5-5.1) mmol/L Chloride (98-107) mmol/L Carbon Dioxide (22-30) mmol/L Anion Gap mmol/L BUN (7-17) mg/dL Creatinine (0.52-1.04) mg/dL Est GFR (MDRD) Af Amer (>60 ml/min/1.73 sqM) Est GFR (MDRD) Non-Af (>60 ml/min/1.73 sqM) Glucose (74-99) mg/dL Calcium (8.4-10.2) mg/dL Total Bilirubin (0.2-1.3) mg/dL AST (14-36) U/L ALT (9-52) U/L Alkaline Phosphatase (38-126) U/L Total Protein (6.3-8.2) g/dL Albumin (3.5-5.0) g/dL Urine HCG, Qual (Not Detectd) Salicylates mg/dL Urine Opiates Screen (NotDetected) Ur Oxycodone Screen (NotDetected) Urine Methadone Screen (NotDetected) Ur Propoxyphene Screen (NotDetected) Acetaminophen ug/mL Ur Barbiturates Screen (NotDetected) U Tricyclic Antidepress (NotDetected) Ur Phencyclidine Scrn (NotDetected) Ur Amphetamines Screen (NotDetected) U Methamphetamines Scrn (NotDetected) U Benzodiazepines Scrn (NotDetected) Urine Cocaine Screen (NotDetected) U Marijuana (THC) Screen (NotDetected) Disposition <Seferino Martínez - Last Filed: 04/01/17 23:49> Time of Disposition: 10:11 <Omar Pollard - Last Filed: 04/02/17 10:12> Clinical Impression: Methamphetamine abuse Disposition: HOME SELF-CARE Condition: Good Instructions: Methamphetamine Abuse (ED) Referrals: Samuel Hirsch MD [Primary Care Provider] - 1-2 days
[2017-04-01 23:22] LABS: HCT 34.8 % (34.0-46.0); HGB 11.4 gm/dL (11.4-16.0); MCH 26.6 pg (25.0-35.0); MCHC 32.8 g/dL (31.0-37.0); MCV 81.3 fL (80.0-100.0); Mean Platelet Volume 6.5; Platelet Count 354 k/uL (150-450); RBC 4.28 m/uL (3.80-5.40); RDW 12.9 % (11.5-15.5); WBC 9.4 k/uL (3.8-10.6)
[2017-04-01 23:30] LABS: ALT 38 U/L (9-52); AST 19 U/L (14-36); Acetaminophen <10.0 ug/mL; Albumin 3.9 g/dL (3.5-5.0); Alkaline Phosphatase 58 U/L (38-126); Anion Gap 12 mmol/L; Blood Urea Nitrogen 19 mg/dL (7-17); Carbon Dioxide 24 mmol/L (22-30); Chloride 104 mmol/L (98-107); Glucose 121 mg/dL (74-99); Potassium 3.6 mmol/L (3.5-5.1); Salicylate <1.0 mg/dL; Sodium 140 mmol/L (137-145); Total Bilirubin 0.4 mg/dL (0.2-1.3); Total Protein 7.2 g/dL (6.3-8.2)
[2017-04-01 23:44] LABS: Amphetamine Screen,Urine Detected (NotDetected); Barbiturate Screen,Urine Not Detected (NotDetected); Benzodiazepines Screen,Urine Not Detected (NotDetected); Cocaine Screen,Urine Not Detected (NotDetected); Methadone Screen, Urine Not Detected (NotDetected); Opiate Screen,Urine Not Detected (NotDetected); Oxycodone Screen, Urine Not Detected (NotDetected); Phencyclidine Screen,Urine Not Detected (NotDetected); Tricyclic Antidepressant,Urine Not Detected (NotDetected); Urn Cannabinoid Scrn Not Detected (NotDetected)
[2017-04-01 23:53] LABS: Band Neutrophils % 4 %; Eosinophils # (M) 0.47 k/uL (0-0.7); Lymphocytes # (M) 3.38 k/uL (1.0-4.8); Monocytes # (M) 0.09 k/uL (0-1.0); Neutrophils % (M) 54 %; Nucleated Red Blood Cells 0 /100 WBC (0-0); Total Cells Counted 100
[2017-04-01 23:59] LABS: Anisocytosis (M) Present; Large Platelets Present; Poikilocytosis (M) Present
[2017-04-02 03:10] VITALS: RESP 16
[2017-04-02 10:22] VITALS: BP 124/76; PULSE 79; TEMP 98.1
== END 2017-04-02 10:30 | disposition home or self-care (01) ==
LOC: EC 22:33
DX: F15.10 Other stimulant abuse, uncomplicated (principal); F91.9 Conduct disorder, unspecified; F31.9 Bipolar disorder, unspecified; F17.200 Nicotine dependence, unspecified, uncomplicated; Z79.899 Other long term (current) drug therapy
CPT/HCPCS: 99284; 96374; 82075; 36415; 93005; 80053; 85025; 81025; 80306; 83520 ×2; J2060

== ENCOUNTER 2017-07-07 08:54 | Emergency (ER) | payer OTHER ==
[2017-07-07 09:04] VITALS: BP 125/76; PULSE 100; RESP 18; TEMP 98.7
[2017-07-07] MEDS ORDERED: SODIUM CHLORIDE 0.9% 1,000 ML IV STA (09:18)
[2017-07-07] MEDS ORDERED: LORazepam 2 MG/ML INJ IV STA (09:23)
--- NOTE | 2017-07-07 09:29 | ED ---
General Adult HPI - General Chief complaint: Altered Mental Status Stated complaint: Overdose Time Seen by Provider: 07/07/17 09:13 Source: patient, RN notes reviewed Mode of arrival: EMS - History of Present Illness Initial comments: Patient's a 37-year-old female presenting to the emergency room today by EMS, the chief complaint of using methadone last night. Patient states she is feeling better at this time does admit to using methadone and drinking some alcohol last night. She states she did use cocaine once approximately one week ago that she injected to the left AC. Patient states that she had no intentions of harming herself. She states yesterday was a very difficult day as it was Mother's Day for her. Patient denies any other physical complaints at this time. She does admit that she has anxiety. Patient denies any recent fever, chills, shortness of breath, chest pain, back pain, abdominal pain, nausea or vomiting, numbness or tingling, dysuria or hematuria, constipation or diarrhea, headaches or visual changes, or any other complaints. - Related Data Home Medications Medication Instructions Recorded Confirmed Gabapentin [Neurontin] 100 mg PO BID 07/07/17 07/07/17 Gabapentin [Neurontin] 300 mg PO BID 07/07/17 07/07/17 Naproxen Sodium [Aleve] 220 mg PO Q12HR PRN 07/07/17 07/07/17 Allergies Allergy/AdvReac Type Severity Reaction Status Date / Time No Known Allergies Allergy Verified 07/07/17 09:16 Review of Systems ROS Statement: Those systems with pertinent positive or pertinent negative responses have been documented in the HPI. ROS Other: All systems not noted in ROS Statement are negative. Past Medical History Additional Past Medical History / Comment(s): ENDOMETRIOSIS History of Any Multi-Drug Resistant Organisms: None Reported Past Surgical History: Adenoidectomy, Section, Tonsillectomy Additional Past Surgical History / Comment(s): BILATERAL BUNIONECTOMY joint fusion on r foot/toe Past Psychological History: Bipolar Smoking Status: Current every day smoker Past Alcohol Use History: Occasional Past Drug Use History: Heroin, Marijuana, Methamphetamine General Exam - General Exam Comments Initial Comments: General: The patient is awake and alert, in no distress. Unable to sit still. Eye: Pupils are equal, round and reactive to light, extra-ocular movements are intact. No nystagmus. There is normal conjunctiva bilaterally. No signs of icterus. Ears, nose, mouth and throat: There are moist mucous membranes and no oral lesions. Neck: The neck is supple, there is no tenderness or JVD. Cardiovascular: There is a regular rate and rhythm. No murmur, rub or gallop is appreciated. Respiratory: Lungs are clear to auscultation, respirations are non-labored, breath sounds are equal. No wheezes, stridor, rales, or rhonchi. Musculoskeletal: Normal ROM, no tenderness. Strength 5/5. Sensation intact. Pulses equal bilaterally 2+. Neurological: A&O x 3. CN II-XII intact, There are no obvious motor or sensory deficits. Coordination appears grossly intact. Speech is normal. Skin: Skin is warm and dry and no rashes or lesions are noted. Psychiatric: Cooperative, appropriate mood & affect, normal judgment. Course Vital Signs 07/07/17 08:57 Temperature 98.7 F Pulse Rate 100 Respiratory 18 Rate Blood Pressure 125/76 O2 Sat by Pulse 98 Oximetry Medical Decision Making - Medical Decision Making Patient examined here the emergency room show no signs of distress. Patient did not want to have any testing performed here in the emergency room. Willing to give us a urine sample but does not what her blood drawn. She didn't want to leave. Family members at bedside state they're comfortable taking her home. Patient did sign out AMA. Disposition Clinical Impression: Drug overdose Disposition: HOME SELF-CARE Condition: Good Is patient prescribed a controlled substance at d/c from ED?: No Referrals: None,Stated [Primary Care Provider] - 1-2 days Time of Disposition: 11:09
== END 2017-07-07 11:09 | disposition left against medical advice (07) ==
LOC: EC 08:54
DX: T40.3X1A Poisoning by methadone, accidental (unintentional), initial encounter (principal); T40.5X1A Poisoning by cocaine, accidental (unintentional), initial encounter; F41.9 Anxiety disorder, unspecified; F17.200 Nicotine dependence, unspecified, uncomplicated; Z79.899 Other long term (current) drug therapy; Z53.29 Procedure and treatment not carried out because of patient's decision for other reasons
CPT/HCPCS: 99284

== ENCOUNTER 2017-07-11 20:43 | Emergency (ER) | payer OTHER ==
[2017-07-11 20:53] VITALS: RESP 18
--- NOTE | 2017-07-11 21:27 | ED ---
General Adult HPI - General Chief complaint: Medical Clearance Stated complaint: Medical Clearance Time Seen by Provider: 07/11/17 21:00 Source: patient, police, RN notes reviewed Mode of arrival: ambulatory Limitations: no limitations - History of Present Illness Initial comments: This a 37-year-old female presents emergency Department in the custody of police. Police are looking to have medical clearance psychiatric over to the police station. Patient admits to doing methamphetamine she states this morning she started up and this afternoon she smoked up. Patient is acting very bizarre and that is the reason the police were called. Patient does not have any complaints at this time. Patient does admit to smoking methamphetamine. Patient denies all other drug use. Patient denies any difficulty breathing or shortness of breath patient denies any chest pain or abdominal pain. - Related Data Home Medications Medication Instructions Recorded Confirmed Gabapentin [Neurontin] 100 mg PO BID 07/07/17 07/07/17 Gabapentin [Neurontin] 300 mg PO BID 07/07/17 07/07/17 Naproxen Sodium [Aleve] 220 mg PO Q12HR PRN 07/07/17 07/07/17 Allergies Allergy/AdvReac Type Severity Reaction Status Date / Time No Known Allergies Allergy Verified 07/11/17 20:49 Review of Systems ROS Statement: Those systems with pertinent positive or pertinent negative responses have been documented in the HPI. ROS Other: All systems not noted in ROS Statement are negative. Past Medical History Additional Past Medical History / Comment(s): ENDOMETRIOSIS History of Any Multi-Drug Resistant Organisms: None Reported Past Surgical History: Adenoidectomy, Section, Tonsillectomy Additional Past Surgical History / Comment(s): BILATERAL BUNIONECTOMY joint fusion on r foot/toe Past Psychological History: Bipolar Smoking Status: Current every day smoker Past Alcohol Use History: None Reported Past Drug Use History: Heroin, Marijuana, Methamphetamine General Exam - General Exam Comments Initial Comments: GENERAL: Patient is well-developed and well-nourished. Patient is nontoxic and well- hydrated and is in no acute distress. Patient is very agitated consistent with methamphetamine use ENT: Neck is soft and supple. No significant lymphadenopathy is noted. Oropharynx is clear. Moist mucous membranes. Neck has full range of motion without eliciting any pain. EYES: The sclera were anicteric and conjunctiva were pink and moist. Extraocular movements were intact and pupils were equal round and reactive to light. Eyelids were unremarkable. PULMONARY: Unlabored respirations. Good breath sounds bilaterally. No audible rales rhonchi or wheezing was noted. CARDIOVASCULAR: Patient is tachycardic ABDOMEN: Soft and nontender with normal bowel sounds. SKIN: Skin is clear with no lesions or rashes and otherwise unremarkable. NEUROLOGIC: Patient is alert and oriented x3. Cranial nerves II through XII are grossly intact. Motor and sensory are also intact. Patient has very rapid speech but her speech is clear. MUSCULOSKELETAL: Normal extremities with adequate strength and full range of motion. LYMPHATICS: No significant lymphadenopathy is noted PSYCHIATRIC: Patient is very hyperactive and cannot stop talking. Patient is also unable to sit still for the interview. But she does not speak of suicide or homicide. Limitations: no limitations Course Vital Signs 07/11/17 20:49 Temperature 99.2 F Pulse Rate 79 Respiratory 18 Rate Blood Pressure 131/89 O2 Sat by Pulse 99 Oximetry Disposition Clinical Impression: Methamphetamine abuse, Medical clearance for incarceration Disposition: HOME SELF-CARE Instructions: Methamphetamine Abuse (ED) Is patient prescribed a controlled substance at d/c from ED?: No Referrals: None,Stated [Primary Care Provider] - 1-2 days Time of Disposition: 21:27
[2017-07-11] MEDS ORDERED: LORazepam 2 MG/ML INJ IM STA (21:31)
[2017-07-11 22:24] VITALS: BP 132/58; PULSE 98; TEMP 98
== END 2017-07-11 22:24 | disposition home or self-care (01) ==
LOC: EC 20:43
DX: F15.10 Other stimulant abuse, uncomplicated (principal); Z02.89 Encounter for other administrative examinations; F90.9 Attention-deficit hyperactivity disorder, unspecified type; R00.0 Tachycardia, unspecified; R45.1 Restlessness and agitation; F17.200 Nicotine dependence, unspecified, uncomplicated; Z79.899 Other long term (current) drug therapy
CPT/HCPCS: 99283; 96372; J2060

== ENCOUNTER 2017-07-23 15:04 | Inpatient (IN) | payer MEDICAID, OTHER ==
--- NOTE | 2017-07-23 15:56 | ED ---
General Adult HPI - General Chief complaint: Psychiatric Symptoms Stated complaint: mental health Time Seen by Provider: 07/23/17 15:05 Source: patient, police, RN notes reviewed Mode of arrival: ambulatory Limitations: no limitations - History of Present Illness Initial comments: This is a 37-year-old female who comes in in custody of the police. Patient is very hyperverbal and hyperactive. Patient has a history of doing methamphetamine. and she states she did that yesterday but did not do it today. Patient denies suicidal or homicidal ideations. Patient denies being depressed. Patient states she does know why she is really hear the police just showed up at her house. Patient denies any psychiatric history. Patient denies any physical complaints today. Patient denies headache patient denies numbness weakness. Patient denies lightheadedness or dizziness. Patient denies chest pain palpitations difficulty breathing shortness of breath. Patient denies any recent fever chills or cough. Patient denies abdominal pain patient denies nausea vomiting diarrhea. - Related Data Home Medications Medication Instructions Recorded Confirmed Gabapentin [Neurontin] 100 mg PO BID 07/07/17 07/23/17 Gabapentin [Neurontin] 300 mg PO BID 07/07/17 07/23/17 Naproxen Sodium [Aleve] 220 mg PO Q12HR PRN 07/07/17 07/23/17 Ibuprofen [Motrin] 800 mg PO BID PRN 07/23/17 07/23/17 Multivitamins, Thera [Multivitamin 1 tab PO DAILY 07/23/17 07/23/17 (formulary)] Allergies Allergy/AdvReac Type Severity Reaction Status Date / Time No Known Allergies Allergy Verified 07/23/17 16:11 Review of Systems ROS Statement: Those systems with pertinent positive or pertinent negative responses have been documented in the HPI. ROS Other: All systems not noted in ROS Statement are negative. Past Medical History Additional Past Medical History / Comment(s): ENDOMETRIOSIS, previous heroin only uses meth History of Any Multi-Drug Resistant Organisms: None Reported Past Surgical History: Adenoidectomy, Section, Tonsillectomy Additional Past Surgical History / Comment(s): BILATERAL BUNIONECTOMY joint fusion on r foot/toe Past Psychological History: Bipolar Smoking Status: Current every day smoker Past Alcohol Use History: None Reported Past Drug Use History: Heroin, Marijuana, Methamphetamine General Exam - General Exam Comments Initial Comments: GENERAL: Patient is well-developed and well-nourished. Patient is nontoxic and well- hydrated and is in no acute distress. ENT: Neck is soft and supple. No significant lymphadenopathy is noted. Oropharynx is clear. Moist mucous membranes. Neck has full range of motion without eliciting any pain. EYES: The sclera were anicteric and conjunctiva were pink and moist. Extraocular movements were intact and pupils were equal round and reactive to light. Eyelids were unremarkable. PULMONARY: Unlabored respirations. Good breath sounds bilaterally. No audible rales rhonchi or wheezing was noted. CARDIOVASCULAR: There is a regular rate and rhythm without any murmurs gallops or rubs. ABDOMEN: Soft and nontender with normal bowel sounds. No palpable organomegaly was noted. There is no palpable pulsatile mass. SKIN: Skin is clear with no lesions or rashes and otherwise unremarkable. NEUROLOGIC: Patient is alert and oriented x3. Cranial nerves II through XII are grossly intact. Motor and sensory are also intact. Normal speech, volume and content. Symmetrical smile. MUSCULOSKELETAL: Normal extremities with adequate strength and full range of motion. LYMPHATICS: No significant lymphadenopathy is noted PSYCHIATRIC: Patient is hyperverbal and spastic CONTENT SHE CANNOT SIT STILL AND SHE KEEPS SLIPPING AND TURNING IN BED. Limitations: no limitations Course Vital Signs 07/23/17 15:07 Temperature 97.3 F L Pulse Rate 97 Respiratory 22 Rate Blood Pressure 141/79 O2 Sat by Pulse 99 Oximetry Medical Decision Making - Lab Data Result diagrams: 07/23/17 17:05 07/23/17 17:05 Lab Results 07/23/17 07/23/17 07/23/17 Range/Units 15:59 15:59 17:05 WBC 4.3 (3.8-10.6) k/uL RBC 4.67 (3.80-5.40) m/uL Hgb 11.4 (11.4-16.0) gm/dL Hct 35.3 (34.0-46.0) % MCV 75.6 L (80.0-100.0) fL MCH 24.4 L (25.0-35.0) pg MCHC 32.2 (31.0-37.0) g/dL RDW 14.2 (11.5-15.5) % Plt Count 340 (150-450) k/uL Sodium (137-145) mmol/L Potassium (3.5-5.1) mmol/L Chloride (98-107) mmol/L Carbon Dioxide (22-30) mmol/L Anion Gap mmol/L BUN (7-17) mg/dL Creatinine (0.52-1.04) mg/dL Est GFR (CKD-EPI)AfAm (>60 ml/min/1.73 sqM) Est GFR (CKD-EPI)NonAf (>60 ml/min/1.73 sqM) Glucose (74-99) mg/dL Calcium (8.4-10.2) mg/dL Total Bilirubin (0.2-1.3) mg/dL AST (14-36) U/L ALT (9-52) U/L Alkaline Phosphatase (38-126) U/L Total Protein (6.3-8.2) g/dL Albumin (3.5-5.0) g/dL Urine Color Yellow Urine Appearance Clear (Clear) Urine pH 5.5 (5.0-8.0) Ur Specific Hartman 1.008 (1.001-1.035) Urine Protein Negative (Negative) Urine Glucose (UA) Negative (Negative) Urine Ketones Negative (Negative) Urine Blood Negative (Negative) Urine Nitrite Negative (Negative) Urine Bilirubin Negative (Negative) Urine Urobilinogen <2.0 (<2.0) mg/dL Ur Leukocyte Esterase Negative (Negative) Urine Opiates Screen Not Detected (NotDetected) Ur Oxycodone Screen Not Detected (NotDetected) Urine Methadone Screen Not Detected (NotDetected) Ur Propoxyphene Screen Not Detected (NotDetected) Ur Barbiturates Screen Not Detected (NotDetected) U Tricyclic Antidepress Not Detected (NotDetected) Ur Phencyclidine Scrn Not Detected (NotDetected) Ur Amphetamines Screen Detected H (NotDetected) U Methamphetamines Scrn Detected H (NotDetected) U Benzodiazepines Scrn Not Detected (NotDetected) Urine Cocaine Screen Not Detected (NotDetected) U Marijuana (THC) Screen Detected H (NotDetected) 07/23/17 Range/Units 17:05 WBC (3.8-10.6) k/uL RBC (3.80-5.40) m/uL Hgb (11.4-16.0) gm/dL Hct (34.0-46.0) % MCV (80.0-100.0) fL MCH (25.0-35.0) pg MCHC (31.0-37.0) g/dL RDW (11.5-15.5) % Plt Count (150-450) k/uL Sodium 145 (137-145) mmol/L Potassium 4.0 (3.5-5.1) mmol/L Chloride 107 (98-107) mmol/L Carbon Dioxide 23 (22-30) mmol/L Anion Gap 15 mmol/L BUN 13 (7-17) mg/dL Creatinine 0.67 (0.52-1.04) mg/dL Est GFR (CKD-EPI)AfAm >90 (>60 ml/min/1.73 sqM) Est GFR (CKD-EPI)NonAf >90 (>60 ml/min/1.73 sqM) Glucose 102 H (74-99) mg/dL Calcium 9.3 (8.4-10.2) mg/dL Total Bilirubin 0.3 (0.2-1.3) mg/dL AST 16 (14-36) U/L ALT 30 (9-52) U/L Alkaline Phosphatase 41 (38-126) U/L Total Protein 7.4 (6.3-8.2) g/dL Albumin 4.3 (3.5-5.0) g/dL Urine Color Urine Appearance (Clear) Urine pH (5.0-8.0) Ur Specific Hartman (1.001-1.035) Urine Protein (Negative) Urine Glucose (UA) (Negative) Urine Ketones (Negative) Urine Blood (Negative) Urine Nitrite (Negative) Urine Bilirubin (Negative) Urine Urobilinogen (<2.0) mg/dL Ur Leukocyte Esterase (Negative) Urine Opiates Screen (NotDetected) Ur Oxycodone Screen (NotDetected) Urine Methadone Screen (NotDetected) Ur Propoxyphene Screen (NotDetected) Ur Barbiturates Screen (NotDetected) U Tricyclic Antidepress (NotDetected) Ur Phencyclidine Scrn (NotDetected) Ur Amphetamines Screen (NotDetected) U Methamphetamines Scrn (NotDetected) U Benzodiazepines Scrn (NotDetected) Urine Cocaine Screen (NotDetected) U Marijuana (THC) Screen (NotDetected) Disposition Clinical Impression: Acute psychosis, Methamphetamine abuse Disposition: ADMITTED IP TO THIS HOSP Referrals: None,Stated [Primary Care Provider] - 1-2 days Time of Disposition: 17:42
[2017-07-23 16:25] LABS: Amphetamine Screen,Urine Detected (NotDetected); Barbiturate Screen,Urine Not Detected (NotDetected); Benzodiazepines Screen,Urine Not Detected (NotDetected); Cocaine Screen,Urine Not Detected (NotDetected); Methadone Screen, Urine Not Detected (NotDetected); Opiate Screen,Urine Not Detected (NotDetected); Oxycodone Screen, Urine Not Detected (NotDetected); Phencyclidine Screen,Urine Not Detected (NotDetected); Tricyclic Antidepressant,Urine Not Detected (NotDetected); Urn Cannabinoid Scrn Detected (NotDetected)
[2017-07-23 17:00] LABS: Appearance,Urine Clear (Clear); Bilirubin,Urine Negative (Negative); Blood,Urine Negative (Negative); Color,Urine Yellow; Glucose,Urine (UA) Negative (Negative); Ketones,Urine Negative (Negative); Leukocyte Esterase,Urine Negative (Negative); Nitrite,Urine Negative (Negative); PH, Urine 5.5 (5.0-8.0); Protein,Urine Negative (Negative); Specific Gravity,Urine 1.008 (1.001-1.035); Urobilinogen,Urine <2.0 mg/dL (<2.0)
[2017-07-23 17:23] LABS: HCT 35.3 % (34.0-46.0); HGB 11.4 gm/dL (11.4-16.0); Hypochromasia Slight; MCH 24.4 pg (25.0-35.0); MCHC 32.2 g/dL (31.0-37.0); MCV 75.6 fL (80.0-100.0); Mean Platelet Volume 6.6; Microcytosis Slight; Platelet Count 340 k/uL (150-450); RBC 4.67 m/uL (3.80-5.40); RDW 14.2 % (11.5-15.5); WBC 4.3 k/uL (3.8-10.6)
[2017-07-23 17:27] LABS: ALT 30 U/L (9-52); AST 16 U/L (14-36); Albumin 4.3 g/dL (3.5-5.0); Alkaline Phosphatase 41 U/L (38-126); Anion Gap 15 mmol/L; Blood Urea Nitrogen 13 mg/dL (7-17); Calcium 9.3 mg/dL (8.4-10.2); Carbon Dioxide 23 mmol/L (22-30); Chloride 107 mmol/L (98-107); Glucose 102 mg/dL (74-99); Sodium 145 mmol/L (137-145); Total Bilirubin 0.3 mg/dL (0.2-1.3); Total Protein 7.4 g/dL (6.3-8.2)
[2017-07-23] MEDS ORDERED: LORazepam 2 MG/ML INJ IM STA (17:39)
[2017-07-23] MEDS ORDERED: ZIPRASIDONE 20 MG VIAL IM STA (17:40)
[2017-07-23 17:50] LABS: Band Neutrophils % 2 %; Eosinophils # (M) 0.13 k/uL (0-0.7); Lymphocytes # (M) 2.49 k/uL (1.0-4.8); Neutrophils % (M) 37 %; Nucleated Red Blood Cells 0 /100 WBC (0-0); Poikilocytosis (M) Present; Total Cells Counted 100
[2017-07-23] MEDS ORDERED: ZIPRASIDONE 20 MG VIAL IM PRN (18:40)
[2017-07-23] MEDS ORDERED: LORazepam 1 MG TAB PO PRN (18:40)
[2017-07-23] MEDS ORDERED: ACETAMINOPHEN TAB 325 MG TAB PO PRN (18:40)
[2017-07-23] MEDS ORDERED: MAG HYDROX/AL HYDROX/SIMETH 30 ML CUP PO PRN (18:40)
[2017-07-23] MEDS ORDERED: MAGNESIUM HYDROXIDE 2,400 MG/10 ML CUP PO PRN (18:40)
[2017-07-23] MEDS ORDERED: LORazepam 2 MG/ML INJ IM PRN (18:44)
--- NOTE | 2017-07-23 20:42 | P.PN ---
Progress Note - Text Progress Note Date: 07/23/17 I went to see the new consult per RN request, However when enetered the patient room with the RN, the patient was heavily sedated with geodon and ativan, she is deeply sleeping and did not respond to any verbal or gentle tactile stimulation by the RN. patient will be seen at a later time when she is more awake.
[2017-07-24 06:48] VITALS: TEMP 97.9
--- NOTE | 2017-07-24 06:54 | P.MDCNMH ---
History of Present Illness H&P Date: 07/24/17 Chief Complaint: Medical management 37-year-old female denies any past medical history brought to the hospital in custody of police due to being hyperactive hyperverbal. Patient admits to polysubstance abuse currently denies any suicidal or homicidal ideation. She denies any medical concerns at this time denies any chest pain or trouble breathing denies any weight changes denies any fevers or chills denies any upper respiratory infection like symptoms denies any abdominal pain nausea or vomiting she denies any diarrhea or constipation denies any GI bleeding denies any focal neurologic deficits Review of Systems Pertinent positives as noted in HPI. All other systems were reviewed and are negative Past Medical History Additional Past Medical History / Comment(s): ENDOMETRIOSIS, previous heroin only uses meth History of Any Multi-Drug Resistant Organisms: None Reported Past Surgical History: Adenoidectomy, Section, Tonsillectomy Additional Past Surgical History / Comment(s): BILATERAL BUNIONECTOMY joint fusion on r foot/toe Past Psychological History: Bipolar Smoking Status: Current every day smoker Past Alcohol Use History: None Reported Past Drug Use History: Heroin, Marijuana, Methamphetamine - Past Family History Family Additional Family Medical History / Comment(s): Denies any family history of heart disease. Reports history of melanoma and breast cancer Medications and Allergies Home Medications Medication Instructions Recorded Confirmed Type Gabapentin [Neurontin] 100 mg PO BID 07/07/17 07/23/17 History Gabapentin [Neurontin] 300 mg PO BID 07/07/17 07/23/17 History Naproxen Sodium [Aleve] 220 mg PO Q12HR PRN 07/07/17 07/23/17 History Ibuprofen [Motrin] 800 mg PO BID PRN 07/23/17 07/23/17 History Multivitamins, Thera [Multivitamin 1 tab PO DAILY 07/23/17 07/23/17 History (formulary)] Allergies Allergy/AdvReac Type Severity Reaction Status Date / Time No Known Allergies Allergy Verified 07/23/17 18:40 Physical Exam Vitals: Vital Signs Temp Pulse Pulse Resp BP BP Pulse Ox 07/24/17 06:25 97.9 F 77 16 111/71 07/23/17 18:55 98.7 F 75 16 125/72 96 07/23/17 18:46 98.2 F 80 16 121/74 98 07/23/17 15:07 97.3 F L 97 22 141/79 99 Intake and Output 07/23/17 07/23/17 07/24/17 14:59 22:59 06:59 Other: Weight 70.76 kg Constitutional: No acute distress, conversant, pleasant Eyes: Anicteric sclerae, moist conjunctiva, no lid-lag Pupils equal round reactive to light ENMT: NC/AT Oropharynx clear, no erythema, or exudates Neck: Supple, FROM, no masses, or JVD No carotid bruits No thyromegaly Lungs: Clear to auscultation Clear to percussion Normal respiratory effort, no accessory muscle use Cardiovascular: Heart regular in rate and rhythm, No murmurs, gallops, or rubs No peripheral edema Abdominal: Soft Nontender, no guarding, rebound or rigidity Abdomen moving with respiration Normoactive bowel sounds No hepatomegaly, No splenomegaly No palpable mass No abdominal wall hernia noted Skin: Normal temperature, tone, texture, turgor No induration No subcutaneous nodules No rash, lesions No ulcers Extremities: No digital cyanosis No clubbing Pedal pulses intact and symmetrical Radial pulses intact and symmetrical No calf tenderness Psychiatric: Alert and oriented to person, place Avoids eye contact Poor judgment Neuro Muscles Strength 5/5 in all 4 extremities Sensation to light touch grossly present throughout No focal sensory deficits Lymphatics: no palpable cervical or supraclavicular , or inguinal lymph nodes Cranial Nerve Examination - Cranial Nerves Cranial Nerve II- Optic: Intact Cranial Nerve III- Oculomotor: Intact Cranial Nerve IV- Trochlear: Intact Cranial Nerve V- Trigeminal: Intact Cranial Nerve - Abducens: Intact Cranial Nerve VII- Facial: Intact Cranial Nerve VIII- Auditory: Intact Cranial Nerve IX- Glossopharyngeal: Intact Cranial Nerve X- Vagus: Intact Cranial Nerve XI- Accessory: Intact Cranial Nerve XII- Hypoglossal: Intact Results CBC & Chem 7: 07/23/17 17:05 07/23/17 17:05 Labs: Abnormal Lab Results - Last 24 Hours (Table) 07/23/17 07/23/17 07/23/17 Range/Units 15:59 17:05 17:05 MCV 75.6 L (80.0-100.0) fL MCH 24.4 L (25.0-35.0) pg Glucose 102 H (74-99) mg/dL Ur Amphetamines Screen Detected H (NotDetected) U Methamphetamines Scrn Detected H (NotDetected) U Marijuana (THC) Screen Detected H (NotDetected) Assessment and Plan Plan: 37-year-old female with history of bipolar disorder brought to the hospital with the police custody due to being hyperverbal hyperactive. Patient admits to polysubstance abuse. Medicine consult for further medical management #Bipolar disorder with manic features Management per psych #Polysubstance abuse Patient counseled to avoid drug of abuse #Smoking Patient counseled to quit smoking Dictating replacement therapy offered #Microcytosis without anemia Check iron studies #DVT prophylaxis Low risk patient is ambulatory Thank you for allowing us to participate in the care of this patient. We will follow peripherally. Do not hesitate to contact us with questions. Someone can be reached from the [facility] hospitalist group at all hours of the day at [phone].
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
[2017-07-24] MEDS: NICOTINE 14MG/24HR PATCH TRANSDERM SCH (17:06)
[2017-07-24 17:28] LABS: Iron Saturation 5.32 (12.00-45.00)
[2017-07-25 06:50] VITALS: BP 120/71; PULSE 67; RESP 14
[2017-07-25] MEDS: NICOTINE 14MG/24HR PATCH TRANSDERM SCH (09:05)
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
== END 2017-07-25 12:15 | disposition home or self-care (01) | DRG 897 ==
LOC: EC 15:04 → 3MHU 18:31
PROVIDERS: ADMIT Psychiatry & Neurology Psychiatry; ATTEND Psychiatry & Neurology Psychiatry
DX: F15.959 Other stimulant use, unspecified with stimulant-induced psychotic disorder, unspecified (principal); F31.10 Bipolar disorder, current episode manic without psychotic features, unspecified; F17.200 Nicotine dependence, unspecified, uncomplicated; Z59.0 Homelessness; Z65.3 Problems related to other legal circumstances; Z71.6 Tobacco abuse counseling; F17.210 Nicotine dependence, cigarettes, uncomplicated; Z71.51 Drug abuse counseling and surveillance of drug abuser; N80.9 Endometriosis, unspecified; Z98.1 Arthrodesis status; Z80.3 Family history of malignant neoplasm of breast; Z80.8 Family history of malignant neoplasm of other organs or systems; F31.9 Bipolar disorder, unspecified; F19.10 Other psychoactive substance abuse, uncomplicated
CPT/HCPCS: 36415; 80053; 80306; 81003; 81025; 82075; 82728; 83540; 83550; 84443; 85025; 96372; 99285